=== PATIENT | male | born 1990 | race Caucasian/White ===

== ENCOUNTER 2018-06-22 11:21 | Emergency (ER) | payer BC ==
[~2018-06-22] VITALS: Ht 172.7 cm; Wt 68.2 kg
[2018-06-22 11:23] VITALS: BP 133/82; PULSE 86; TEMP 99.3
[2018-06-22] MEDS ORDERED: CEPHALEXIN500 M1 PO (12:03)
== END 2018-06-22 13:59 | disposition home or self-care (01) ==
LOC: COL.ER 11:21
DX: S61.341A Puncture wound with foreign body of left index finger with damage to nail, initial encounter (principal); Z23 Encounter for immunization; W45.0XXA Nail entering through skin, initial encounter; W29.4XXA Contact with nail gun, initial encounter